=== PATIENT | male | born 1950 | race Caucasian/White ===

== ENCOUNTER 2019-06-15 06:44 | Day surgery (SDC) | payer MEDICARE ==
[2019-06-14 13:05] VITALS: BMI 39.1
[~2019-06-15 06:44] MED LIST: FLU VACC TS2019-20(65YR UP)/PF 180 MCG/0.5 ML SYRINGE IM ONE; Prevnar 13-Val Conj/PF 0.5 ML SYRINGE IM ONE
[2019-06-15 08:00] VITALS: BP 161/91; TEMP 97.6
--- NOTE | 2019-06-15 10:02 | RAD ---
LUMBAR SPINE SERIES FIVE VIEWS INCLUDING FLEXION AND EXTENSION: History: Low back pain. FINDINGS: Bones appear demineralized. Some minimal wedging through the superior endplate of L1 probably related to an old minimal compression injury. Prominent osteophytic changes are seen along the course of the spine. Minimal retrolisthesis of L1 on L2 is seen. There is fairly pronounced disc narrowing at the L4-5 level, also mild disc narrowing at L2-3 and L5-S1. Degenerative facet changes are seen. IMPRESSION: Arthritic changes of the spine. No definite abnormal motion on the flexion or extension views. POS: TPC
--- NOTE | 2019-06-15 10:14 | CT ---
EXAM: CT cervical spine post myelogram PROVIDED CLINICAL HISTORY: Finger numbness and tingling with neck pain TECHNIQUE: Contiguous axial CT images are obtained through the cervical spine from the skull base to the T1 leve l. Sagittal and coronal reformatted images are provided. COMPARISON: None FINDINGS: No fracture or subluxation is seen. There is no prevertebral soft tissue swelling. Scattered degenerative changes are seen in the cervical spine. C2-3 level: There is a mild disc bulge which narrows the ventral subarachnoid space. Neural foramina are patent. C3-4 level: Broad-based disc osteophyte complex is present which narrows the ventral subarachnoid spa ce. This encroaches on the anterior aspect of the spinal cord but does not contact the spinal cord. The neural foramina are patent. C4-5 level: Prominent osteophytes are seen anteriorly with calcification of the anterior longitudinal ligament at this level. A mild broad-based disc osteophyte complex is present. This narrows the ventral subarachnoid space, and there is slight flattening of the central and left anterolateral aspe ct of the spinal cord. Right neural foramen is patent with mild left-sided neural foraminal narrowing. C5-6 level: Osteophytes are present anteriorly with calcification anterior longitudinal ligament. Int ervertebral disc height loss is present. Broad-based disc osteophyte complex is noted. Findings result in generalized narrowing of the central spinal canal with flattening of the anterior aspect of the spinal cord. Mild right and moderate left-sided neural foraminal narrowing are present primarily related to bony encroachment due to posterior osteophytes and mild uncinate process hypertr ophy. C6-7 level: Loss of intervertebral disc height is present. A broad-based disc osteophyte complex is n oted greater centrally. This narrows the ventral subarachnoid space and encroaches on the anterior aspect of the spinal cord. No significant neural foraminal narrowing is present. C7-T1 level: No disc bulge or disc herniation is present. Central spinal canal and neural foramina ar e patent. IMPRESSION: Mild degenerative changes are present cervical spine greatest at the C5-6 level.
--- NOTE | 2019-06-15 10:18 | RAD ---
EXAM: XR Myelogram 2 or More Regions PROVIDED CLINICAL HISTORY: Neurogenic claudication, low back pain, neck pain COMPARISON: None TECHNIQUE: The procedure including the risks and complications were explained to the patient, and informed conse nt was obtained. The patient was placed on the fluoroscopy table in the prone position. An area overlying the L4-5 level at site of laminectomy defect was marked. This area was meticulously prepped and draped in usual sterile fashion. The skin and subcutaneous tissues were infiltrated with buffered 1% lidocaine for local anesthesia. Utilizing fluoroscopic guidance, a 22-gauge spinal needle was advanced into the thecal sac. The inner stylette was removed, and there was a return of clear cerebral spinal fluid. Approximately 9 mL of Isovue-300 contrast was instilled into the thecal sac. T he inner stylette was replaced, and the needle was removed. Hemostasis was achieved with direct pressure, and a dry sterile dressing was placed. Patient was placed in Trendelenburg positioning to allow contrast to flow to the level of the cervica l spine. The patient was then transported to CT for further imaging of the cervical, thoracic, and lumbar spine. The patient tolerated the procedure well and without immediate complication. Patient wa s transported to radiology nurses holding area after CT imaging for further monitoring prior to discharge. IMPRESSION: Technically successful cervical, thoracic, and lumbar myelogram with lumbar puncture at the L4-5 leve l.
--- NOTE | 2019-06-15 10:34 | RAD ---
RADIOGRAPH CERVICAL SPINE 4 VIEWS: DATE: 06-15-2019 HISTORY: 68-year-old male with cervicalgia. TECHNIQUE: 5 total views. Three lateral views in flexion, extension and neutral. Open mouth view. AP view. COMPARISON: None. FINDINGS: Vertebral body heights are maintained. There is a mild, approximately 3 mm anterolisthesis of C3 on C 4 during flexion, which reduces completely on neutral and extension positions. Anterior endplate marginal osteophytes protrude into the prevertebral space at C3-4, C4-5, and C5-6. Disc space narrowing is mild at those levels. There is bilateral facet DJD at upper levels. No prever tebral soft tissue swelling. Minimal degenerative changes at bilateral atlantoaxial joints. IMPRESSION: 1. Mild to moderate cervical spondylosis. 2. Slight instability at C3-4 due to facet osteoarthrosis. JN POS: TPC
--- NOTE | 2019-06-15 10:47 | CT ---
EXAM: CT Thoracic Spine W Con PROVIDED CLINICAL HISTORY: Neck pain and low back pain. This exam was performed post myelogram. COMPARISON: None FINDINGS: Scattered calcified granulomata within the visualized lungs bilaterally. There are prominent osteophy buddy seen anteriorly at multiple levels greatest involving the T7-T11 levels with prominent right anterolateral osteophytes present which results in mild volume loss at the medial aspect right lung a t these levels. Vascular calcifications are seen in the visualized coronary arteries as well as thoracic aorta. There is partial visualization of a dual-lead left subclavian AICD device as well as postsurgical changes related to gastric banding. No fracture or subluxation is seen involving the thoracic spine. Multilevel prominent osteophytes are seen anteriorly. There is bony encroachment on neural foramina at several levels secondary to hypertrophic changes at the costovertebral junctions on the right at the T2-3 and T3-4 levels and on the left at the T4-5, T5-6, and T6-7 levels. Khip-si-cbeairjy degrees of neural foraminal narrowing are present at these le vels with greatest degree of neural foraminal narrowing seen at the T4-5 level on the left with moderate left-sided neural foraminal narrowing. Remaining neural foramina are patent. Central spinal canal appears patent at all levels of the thoracic spine with no significant disc bul ge or disc herniation seen at any level. The conus medullaris terminates at the L1-2 level. Paravertebral soft tissues have a normal appearance. IMPRESSION: Scattered degenerative changes in the thoracic spine with prominent anterior osteophytes at multiple levels as well as degenerative changes and hypertrophic changes at the costovertebral junctions at multiple levels of the thoracic spine extending from the T2-3 to the T6-7 levels as described above r esulting in narrowing of the neural foramina at these levels.
--- NOTE | 2019-06-15 11:21 | CT ---
CT lumbar spine without contrast: HISTORY: Low back pain. Neurogenic claudication. History of prior back surgery. This exam was performed after myelogram. COMPARISON: No prior CT exams of the lumbar spine available FINDINGS: Vascular calcifications are seen in the abdominal aorta and involving the iliac arteries. Many of the limited visualized retroperitoneal structures demonstrate a grossly normal nonenhanced CT appearance. No fracture or subluxation is seen involving the lumbar spine. T12-L1: Mild endplate degenerative changes are present. Minimal disc osteophyte complex is present. T he central spinal canal and neural foramina are patent at this level. L1-2: Mild broad-based disc osteophyte complex with facet hypertrophic changes is present. Slight fla ttening of the anterior aspect of the thecal sac. The neural foramina are patent. L2-3: Vacuum phenomenon is present in the intervertebral disc with slight height loss of the interver tebral disc. A broad-based disc osteophyte complex is present. Mild facet hypertrophic changes are present. Findings result in mild generalized narrowing of the central spinal canal. Mild bilateral ne ural foraminal narrowing is present. Small focus of gas is seen in the left subarticular zone; however, this may be attributable to recent myelogram as opposed to a tiny sequestered disc fragment in this region. L3-4: Broad-based disc osteophyte complex is present. Facet hypertrophic changes and ligamentous thic kening are noted. Avbb-it-yikvukgs central canal narrowing is present. Mild bilateral neural foraminal narrowing is noted greater on the left. L4-5: Laminectomy defect is present at this level. Vacuum phenomenon is seen in the intervertebral di sc. There is a mild disc osteophyte complex without significant narrowing of the central spinal canal. Facet hypertrophic changes are present at this level. Jzcj-hx-oyzusiih left and moderate right -sided neural foraminal narrowing is present. L5-S1: Vacuum phenomenon is seen in the intervertebral disc. Minimal disc osteophyte complex is prese nt with only slight flattening of the anterior aspect of the thecal sac just to the left of midline. Facet hypertrophic changes are noted. Mild bilateral neural foraminal narrowing is present IMPRESSION: Degenerative and postsurgical changes of the lumbar spine. Degenerative changes are greatest at the L 3-4 and L4-5 levels where there is mwbo-fp-cmydyuwa central canal narrowing at the L3-4, and at the L4-5 level there is mild to moderate bilateral neural foraminal narrowing greater on the right.
[2019-06-15] MEDS ORDERED: Iopamidol-M 300 61% 15 ML VIAL ONE (12:09)
== END 2019-06-15 10:35 | disposition home or self-care (01) ==
LOC: RAD 06:44
PROVIDERS: ATTEND Physician Assistant Surgical
PROC: B02B1ZZ Computerized Tomography (CT Scan) of Spinal Cord using Low Osmolar Contrast (ICD-10-PCS; principal; 2019-06-15)
DX: M47.812 Spondylosis without myelopathy or radiculopathy, cervical region (principal); M47.816 Spondylosis without myelopathy or radiculopathy, lumbar region; M48.062 Spinal stenosis, lumbar region with neurogenic claudication; I70.0 Atherosclerosis of aorta; E11.9 Type 2 diabetes mellitus without complications; I10 Essential (primary) hypertension; I25.10 Atherosclerotic heart disease of native coronary artery without angina pectoris; F32.9 Major depressive disorder, single episode, unspecified; E78.5 Hyperlipidemia, unspecified; Z79.82 Long term (current) use of aspirin; Z79.84 Long term (current) use of oral hypoglycemic drugs; Z79.899 Other long term (current) drug therapy; Z95.1 Presence of aortocoronary bypass graft; Z95.810 Presence of automatic (implantable) cardiac defibrillator
CPT/HCPCS: 62305; 72050; 72110; 72126; 72129; 72132; Q9967

== ENCOUNTER 2019-09-12 06:24 | Outpatient (CLI) | payer MEDICARE, OTHER ==
[2019-09-12 14:48] LABS: Hemoglobin 12.8 g/dL (14.0-18.0); Mean Corpuscular HGB CONC 31.9 g/dL (32.0-36.0); Mean Corpuscular Hemoglobin 30.2 pg (27.0-31.0); Mean Corpuscular Volume 94.7 fL (78.0-98.0); Mean Platelet Volume 9.1 fL (7.4-10.4); Platelet Count 192 thou/uL (130-400); RBC Distribution Width 12.8 % (11.5-14.5); Red Blood Cell (RBC) Count 4.22 mill/uL (4.70-6.10); White Blood Cell (WBC) Count 5.7 thou/uL (4.8-10.8)
[2019-09-12 15:02] LABS: PTT 26.9 SEC (22.9-36.1)
[2019-09-12 15:04] LABS: Anion Gap 14 mmol/L (10-20); BUN (Urea Nitrogen) 9 mg/dL (8.4-25.7); Calc. Creatinine Clearance 0 mL/min (70-130); Calcium 9.1 mg/dL (7.8-10.44); Carbon Dioxide 25 mmol/L (23-31); Chloride 105 mmol/L (98-107); Estimated GFR-MDRD Greater than 90; Glucose 164 mg/dL (80-115); Potassium 3.8 mmol/L (3.5-5.1); Sodium 140 mmol/L (136-145)
[2019-09-12 17:17] LABS: SARS-CoV-2 MS2 Positive; SARS-CoV-2 N Gene Negative; SARS-CoV-2 S Gene Negative; SARS-CoV-2 orf1ab Negative
--- NOTE | 2019-09-12 21:38 | EKG ---
Test Reason : Blood Pressure : / mmHG Vent. Rate : 060 BPM Atrial Rate : 066 BPM P-R Int : 000 ms QRS Dur : 108 ms QT Int : 458 ms P-R-T Axes : 000 057 -06 degrees QTc Int : 458 ms Electronic atrial pacemaker Abnormal ECG When compared with ECG of 23-NOV-2010 19:36, Electronic atrial pacemaker has replaced Electronic ventricular pacemaker Confirmed by CYN CHRISTENSEN, DR. Sanchez ([id number]) on 09/12/2019 9:38:21 PM Referred By: BRNEDA Confirmed By:DR. Laura ADDISON MD
== END 2019-09-12 06:25 | disposition home or self-care (01) ==
LOC: LABBT 06:24
PROVIDERS: ATTEND Surgery
DX: Z01.818 Encounter for other preprocedural examination (principal); Z11.59 Encounter for screening for other viral diseases; M51.16 Intervertebral disc disorders with radiculopathy, lumbar region; M48.061 Spinal stenosis, lumbar region without neurogenic claudication
CPT/HCPCS: 80048; 85027; 85610; 85730; 93005; U0003; 87635; 93010

== ENCOUNTER 2019-09-14 08:06 | Day surgery (SDC) | payer MEDICARE ==
[2019-09-12 11:13] VITALS: BMI 39.1
[2019-09-14] MEDS ORDERED: Thrombin 5000 UNITS/5 ML VIAL ONE (10:09)
[2019-09-14] MEDS ORDERED: Lidocaine 2% Jelly 5 ML TUBE ONE (10:16)
[2019-09-14] MEDS ORDERED: Fentanyl 100 MCG/2 ML VIAL ONE ×3 (10:16→13:48)
[2019-09-14] MEDS ORDERED: Succinylcholine Chloride 20 MG/ML 10 ml SYRINGE FS ONE (11:49)
[2019-09-14] MEDS ORDERED: Rocuronium Bromide 10 MG/ML (10ML VIAL) ONE (11:49)
[2019-09-14] MEDS ORDERED: EPHEDRINE 25 MG/5 ML SYRINGE ONE (11:49)
[2019-09-14] MEDS ORDERED: Glycopyrrolate 0.2 MG/ML 5 ML SYRINGE ONE (11:49)
[2019-09-14] MEDS ORDERED: PHENYLEPHRINE-NS 100 MCG/ML 10 ML SYRINGE ONE (11:49)
[2019-09-14] MEDS ORDERED: Lidocaine 1% PF 5 ML VIAL ONE (11:49)
[2019-09-14] MEDS ORDERED: PROPOFOL 200 MG/20 ML VIAL ONE (11:49)
[2019-09-14] MEDS ORDERED: Ondansetron PF 4 MG/2 ML Vial ONE (11:49)
[2019-09-14] MEDS ORDERED: Milk Of Magnesia 30 ML UDCUP PO PRN (13:13)
[2019-09-14] MEDS ORDERED: Morphine 2 MG/ML SYRINGE SLOW IVP PRN (13:13)
[2019-09-14] MEDS ORDERED: Acetaminophen/Codeine 30-300mg Tablet PO PRN (13:13)
[2019-09-14] MEDS ORDERED: Bisacodyl 10 MG SUPP PR PRN (13:13)
[2019-09-14] MEDS ORDERED: Acetaminophen 325 MG TAB PO PRN (13:13)
[2019-09-14] MEDS ORDERED: Fleet Enema 133 ML BOT PR PRN (13:13)
[2019-09-14] MEDS ORDERED: traMADol HCl 50 MG TAB PO PRN (13:13)
[2019-09-14] MEDS ORDERED: Mag-Al 1200 mg/1200 mg/30 ML UDCUP PO PRN (13:13)
[2019-09-14] MEDS ORDERED: Promethazine HCl 25 MG/ML VIAL SLOW IVP PRN (13:17)
[2019-09-14] MEDS ORDERED: Ondansetron HCl/PF 4 MG/2 ML Vial IVP PRN (13:17)
[2019-09-14] MEDS ORDERED: Promethazine HCl 25 MG/ML VIAL IM PRN (13:17)
[2019-09-14] MEDS ORDERED: Isosorbide Mononitrate (ER) 30 MG TAB PO PRN (13:20)
[2019-09-14] MEDS ORDERED: Cyclobenzaprine 10 MG TAB PO PRN (13:20)
[2019-09-14] MEDS: HYDROcodone/Acetaminophen 7.5/325 mg Tablet PO PRN (16:39)
[2019-09-14] MEDS: CEFAZOLIN 2 GM in Premix Bag 1 BAG IVPB SCH (16:40)
[2019-09-14] MEDS: Sodium Chloride 0.9% 1,000 ML IV SCH (16:40)
[2019-09-14] MEDS: metFORMIN 500 MG TAB PO SCH (16:42)
[2019-09-14] MEDS: Sotalol HCl 80 MG TAB PO SCH (20:49)
[2019-09-14] MEDS ORDERED: Atorvastatin Calcium 40 MG TAB PO SCH (21:00)
[2019-09-14] MEDS ORDERED: Losartan 25 MG TAB PO SCH (21:00)
[2019-09-14] MEDS ORDERED: Gabapentin 300 MG CAP PO SCH (21:00)
[2019-09-15] MEDS: CEFAZOLIN 2 GM in Premix Bag 1 BAG IVPB SCH (00:32)
[2019-09-15 04:42] VITALS: TEMP 98.3
[2019-09-15] MEDS: Sodium Chloride 0.9% 1,000 ML IV SCH (05:09)
--- NOTE | 2019-09-15 06:21 | OP ---
DATE OF PROCEDURE: 09/14/2019 ACCOUNTS PAYABLE BOOKKEEPER: Mya Fournier PA-C. PREPROCEDURE DIAGNOSIS: Low back and leg pain with leg weakness. POSTPROCEDURE DIAGNOSIS: Low back and leg pain with leg weakness. PROCEDURE PERFORMED: 1. L2-L4 laminectomy, partial facetectomy, and foraminotomy with left L2-L3 disk space and fragment exploration. 2. Use of operative microscope for microdissection. DESCRIPTION OF PROCEDURE: After informed consent was obtained from the patient, the patient was brought to the OR. Proper patient, pause, and identification were carried out. He was placed under excellent general endotracheal anesthesia and positioned prone on the OR table. All appropriate points were padded. We identified the midline lumbar priyanka that would allow for approach to the L2-L4 segment. This region was sterilely cleansed, prepared, and draped. Proper patient, pause, and identification were carried out. The wound was then opened with a combination of sharp, monopolar, and blunt dissection. The L2-L4 dorsal spines and lamina were exposed. We then performed a left L2-3 disk space exploration, but there was no fragment identified. Copious irrigation occurred throughout as did maximizing hemostasis. The wound was then closed in anatomic layers following sprinkling of vancomycin powder. The patient then emerged from anesthesia. Job ID: [id number]
[2019-09-15 07:43] VITALS: BP 109/64
[2019-09-15] MEDS: metFORMIN 500 MG TAB PO SCH (08:41)
[2019-09-15] MEDS: Sotalol HCl 80 MG TAB PO SCH (08:41)
[2019-09-15] MEDS: HYDROcodone/Acetaminophen 7.5/325 mg Tablet PO PRN (08:43)
--- NOTE | 2019-09-15 08:55 | PRG ---
DATE OF SERVICE: 09/15/2019 I saw Jose Grace in Neurosurgery rounds this morning. He is one day out from L2-L4 laminectomy. The lower extremity symptoms he had before surgery are gone. He is happy with the results of his surgery and wants to go home. Among the electronically record vital signs, I do not see any fevers. Oxygen saturations have been in the mid 90s. He reports some low oxygen saturation after surgery he has had in the past as well. He is on room air and asymptomatic. The lower extremities are moving well. Mr. Grace is ready for discharge. We underwent activity restrictions, wound care, and followup. Job ID: [id number]
[2019-09-15] MEDS ORDERED: Cyanocobalamin (Vitamin B-12) 1,000 MCG TAB PO SCH (09:00)
[2019-09-15] MEDS ORDERED: Multivitamin W/ Minerals 1 TAB PO SCH (09:00)
[2019-09-15] MEDS ORDERED: Prevnar 13-Val Conj/PF 0.5 ML SYRINGE IM ONE (09:00)
--- NOTE | 2019-09-16 05:22 | DIS ---
DATE OF ADMISSION: 09/14/2019 DATE OF DISCHARGE: 09/15/2019 HOSPITAL COURSE: Mr. Grace is a 69-year-old male one day postop from L2-L4 laminectomy. Following his surgery, he was transitioned to the med-surg floor, where his pain was well controlled with p.o. medications. He is tolerating a regular diet and voiding appropriately. He is otherwise doing well and ambulating easily and feels that he is afraid to go home today. PHYSICAL EXAMINATION: Today, he is awake, alert, in no acute distress among electronic record. Vital signs, there are no fevers. Oxygen saturations in the mid 90s. He does report low oxygen saturations. Denies any cigarette smoking. He is asymptomatic on room air. He has free active range of motion of all his extremities. No focal motor weakness. No reflex asymmetry. His incision is dry, clean, and intact. Plan to dismiss the patient to go home today. CONDITION ON DISCHARGE: The patient had no emergencies. Condition was stable for discharge. MEDICATIONS: Home-going medications were reviewed. FOLLOWUP: Followup arrangements made by our patient flow coordinator in the clinic and call to the patient. ACTIVITIES: Restrictions were reviewed in person. Wound care showers are acceptable. The patient should pat incision dry, but not submerge it under the surface of body of water for 2 months. Job ID: [id number] MTDD
== END 2019-09-15 11:20 | disposition home or self-care (01) ==
LOC: SDC 08:06 → SJJU 14:57 → SDC 09-15 11:20
PROVIDERS: ATTEND Surgery
PROC: 01NB0ZZ Release Lumbar Nerve, Open Approach (ICD-10-PCS; principal; 2019-09-14)
DX: M48.062 Spinal stenosis, lumbar region with neurogenic claudication (principal); M48.02 Spinal stenosis, cervical region; M54.16 Radiculopathy, lumbar region; Z79.82 Long term (current) use of aspirin; Z79.84 Long term (current) use of oral hypoglycemic drugs; Z79.899 Other long term (current) drug therapy; Z95.1 Presence of aortocoronary bypass graft; Z95.5 Presence of coronary angioplasty implant and graft; Z95.810 Presence of automatic (implantable) cardiac defibrillator; Z23 Encounter for immunization
CPT/HCPCS: 63047; 63048 ×2; 76000; 82962; 90670; G0009; 36416; 90471; J0690; J2001; J2405; J2704; J3010; J3370

== ENCOUNTER 2020-06-30 06:53 | Day surgery (SDC) | payer MEDICARE ==
[2020-06-26 14:25] VITALS: BMI 39.9
[2020-06-30 08:02] VITALS: BP 156/95; TEMP 97.8
--- NOTE | 2020-06-30 08:47 | RAD ---
4 views of the lumbar spine: 06/30/2020 COMPARISON: None HISTORY: Pain, legs "giving out", prior lumbar spine surgeries FINDINGS: There is disc space narrowing with degenerative endplate change as well as anterior and lat eral osteophyte formation at the T12-L1, L1-2, and L2-3 levels. There is atherosclerotic calcification of the abdominal aorta. The patient is status post bilateral laminectomy at L3, L4, and L5. There is prominent multilevel low er lumbar spine facet hypertrophic change. The neutral lateral exam demonstrates mild retrolisthesis at L2-3 measuring 4 mm and at L3-4 measurin g 5 mm. Mild anterolisthesis at L5-S1 on neutral imaging measures 4 mm. On the flexion imaging and the extension imaging the areas of anterolisthesis or retrolisthesis menti oned above are not significantly changed. No acute osseous abnormality. Partially imaged lap band and transvenous AICD present. IMPRESSION: Lumbar spine degenerative change as described above.
--- NOTE | 2020-06-30 08:50 | RAD ---
Lumbar spine myelogram: 06/30/2020 HISTORY: Back pain, legs "giving out" FINDINGS: Informed consent was obtained prior to the procedure. The patient was placed on the fluoros copic table in the prone position and skin overlying the lumbar spine was prepped and draped in normal sterile fashion. Skin overlying the midline L4 level was anesthetized with 1% buffered lidocaine. With intermittent fluoroscopic guidance, a 22-gauge spinal needle was advanced into the thecal sac an d removal of the stylet yields clear cerebrospinal fluid. Subsequently, approximately 12 cc of iodinated contrast media was injected, outlining nerve roots of the cauda equina and filling the thecal sac. Needle was removed. Patient tolerated the procedure well. The patient was sent to the CT scanner for CT myelogram of the lumbar spine. Exposure data: 1.1 minutes of fluoroscopic time, 94 1.1 mcg/sq m IMPRESSION: Successful lumbar spine myelogram as detailed above.
--- NOTE | 2020-06-30 09:04 | CT ---
Lumbar spine CT myelogram: 06/30/2020 COMPARISON: 06/15/2019 HISTORY: Back pain, legs "giving out", prior back surgery TECHNIQUE: Axial CT imaging obtained at 2.5 mm intervals through the lumbar spine following the admin istration of intrathecal iodinated contrast media. Coronal and sagittal reformatted imaging obtained. FINDINGS: There is a partially imaged lap band present. There is multifocal scattered atherosclerotic calcification of the abdominal aorta and its branches. There is no significant anterolisthesis or retrolisthesis noted within the lumbar spine. The conus medullaris terminates at the L1-2 level. Mild anterior wedging of the L1 vertebral body is present, stable when compared to the prior examinat ion. There is significant degenerative change involving bilateral sacroiliac joints, stable. There is multilevel anterior osteophyte formation within the lower thoracic spine, particularly on th e right, most prominent at the T11-12 level. T12-L1: There is disc space narrowing with degenerative endplate change. No significant central canal or neural foraminal stenosis. Minimal bilateral facet hypertrophy. L1-2: There is minimal disc bulge. No central canal stenosis. Mild bilateral facet hypertrophy and hy pertrophy of the ligamentum flavum. Anterior osteophyte formation noted. No significant neural foraminal stenosis on either side. L2-3: Disc space narrowing with mild disc bulge. Anterior osteophyte formation noted. Vacuum disc for mation is present. Mild bilateral facet hypertrophy, left greater than right. Bilateral laminectomy changes are present with no significant central canal stenosis. Mild bilateral neural foraminal steno sis. L3-4: Bilateral laminectomy present. Mild disc bulge with no significant central canal stenosis. Bila teral facet hypertrophy leads to mild bilateral neural foraminal stenosis. L4-5: Bilateral laminectomy changes are present. No central canal stenosis. There is disc space narro wing and vacuum disc formation. Bilateral facet hypertrophy, right greater than left. Moderate right and mild left neural foraminal stenosis. Anterior osteophyte formation. L5-S1: Mild disc space narrowing, vacuum disc formation, and anterior osteophyte formation. Bilateral facet hypertrophy noted with mild/moderate left neural foraminal stenosis and mild right neural foraminal stenosis. No significant central canal stenosis. No acute fracture or dislocation. No worrisome lytic or blastic bone lesion. IMPRESSION: Multilevel postoperative and degenerative change within the lumbar spine as described abo ve.
[2020-06-30] MEDS ORDERED: Iopamidol-M 200 41% 20 ML VIAL ONE (15:24)
== END 2020-06-30 09:30 | disposition home or self-care (01) ==
LOC: RAD 06:53
PROVIDERS: ATTEND Surgery
PROC: B02B1ZZ Computerized Tomography (CT Scan) of Spinal Cord using Low Osmolar Contrast (ICD-10-PCS; principal; 2020-06-30)
DX: M51.36 Other intervertebral disc degeneration, lumbar region (principal); M43.16 Spondylolisthesis, lumbar region; G47.33 Obstructive sleep apnea (adult) (pediatric); E78.00 Pure hypercholesterolemia, unspecified; E11.9 Type 2 diabetes mellitus without complications; I10 Essential (primary) hypertension; I25.10 Atherosclerotic heart disease of native coronary artery without angina pectoris; F32.9 Major depressive disorder, single episode, unspecified; K21.9 Gastro-esophageal reflux disease without esophagitis; I70.0 Atherosclerosis of aorta; M19.90 Unspecified osteoarthritis, unspecified site; I11.9 Hypertensive heart disease without heart failure; E66.9 Obesity, unspecified; Z68.39 Body mass index [BMI] 39.0-39.9, adult; Z79.82 Long term (current) use of aspirin; Z79.84 Long term (current) use of oral hypoglycemic drugs; Z79.899 Other long term (current) drug therapy; Z95.0 Presence of cardiac pacemaker; Z95.1 Presence of aortocoronary bypass graft; Z95.5 Presence of coronary angioplasty implant and graft
CPT/HCPCS: 62304; 72120; 72132; Q9966

== ENCOUNTER 2021-03-12 08:57 | Outpatient (CLI) | payer MEDICARE ==
[2021-03-12 10:27] LABS: Hemoglobin 12.5 g/dL (13.5-17.5); Mean Corpuscular HGB CONC 32.5 g/dL (32.0-36.0); Mean Corpuscular Hemoglobin 30.5 pg (27.0-33.0); Mean Corpuscular Volume 93.9 fl (81.2-95.1); Mean Platelet Volume 10.4 fl (7.4-10.4); Platelet Count 233 10x3/uL (150-450); RBC Distribution Width 13.5 % (11.5-14.5); White Blood Cell (WBC) Count 10.7 10x3/uL (3.5-10.5)
[2021-03-12 10:49] LABS: INR-International Normal Ratio 0.9; Prothrombin Time 10.5 sec (9.5-12.1)
[2021-03-12 10:50] LABS: Anion Gap 15 mmol/L (10-20); BUN (Urea Nitrogen) 16 mg/dL (8.4-25.7); Calc. Creatinine Clearance 0 mL/min (70-130); Calcium 9.7 mg/dL (7.8-10.44); Carbon Dioxide 23 mmol/L (23-31); Chloride 107 mmol/L (98-107); Glucose 151 mg/dL (83-110); Potassium 4.7 mmol/L (3.5-5.1); Sodium 140 mmol/L (136-145)
[2021-03-12 17:21] LABS: SARS-CoV-2 PCR by NAA Not Detected (NotDetected)
== END 2021-03-12 08:58 | disposition home or self-care (01) ==
LOC: LABBT 08:57
PROVIDERS: ATTEND Internal Medicine Cardiovascular Disease
DX: Z01.812 Encounter for preprocedural laboratory examination (principal); T82.111A Breakdown (mechanical) of cardiac pulse generator (battery), initial encounter; I47.2 Ventricular tachycardia; Z20.822 Contact with and (suspected) exposure to COVID-19
CPT/HCPCS: 80048; 85027; 85610; U0003; U0005

== ENCOUNTER 2021-03-17 07:10 | Day surgery (SDC) | payer MEDICARE ==
[2021-03-17] MEDS ORDERED: CEFAZOLIN 1 GM VIAL ONE ×2 (10:48→11:14)
[2021-03-17] MEDS ORDERED: Gentamicin 80 MG/2 ML VIAL ONE ×2 (10:48→11:14)
[2021-03-17] MEDS ORDERED: Lidocaine 1% (PF) 30 ML VIAL ONE ×2 (10:48→11:14)
[2021-03-17] MEDS ORDERED: PROPOFOL 200 MG/20 ML VIAL ONE (11:36)
[2021-03-17] MEDS ORDERED: Midazolam HCl 2 mg/2 ml Vial ONE (11:40)
[2021-03-17] MEDS ORDERED: Fentanyl 100 MCG/2 ML VIAL ONE (11:40)
== END 2021-03-17 16:35 | disposition home or self-care (01) ==
LOC: CCL 07:10
PROVIDERS: ATTEND Internal Medicine Cardiovascular Disease
PROC: 0JPT0PZ Removal of Cardiac Rhythm Related Device from Trunk Subcutaneous Tissue and Fascia, Open Approach (ICD-10-PCS; principal; 2021-03-17)
PROC: 0JH609Z Insertion of Cardiac Resynchronization Defibrillator Pulse Generator into Chest Subcutaneous Tissue and Fascia, Open Approach (ICD-10-PCS; 2021-03-17)
PROC: 3E0102A Introduction of Anti-Infective Envelope into Subcutaneous Tissue, Open Approach (ICD-10-PCS; 2021-03-17)
DX: T82.111A Breakdown (mechanical) of cardiac pulse generator (battery), initial encounter (principal); I47.2 Ventricular tachycardia; I25.10 Atherosclerotic heart disease of native coronary artery without angina pectoris; I10 Essential (primary) hypertension; E78.5 Hyperlipidemia, unspecified; E11.9 Type 2 diabetes mellitus without complications; G47.33 Obstructive sleep apnea (adult) (pediatric); Z79.82 Long term (current) use of aspirin; Z79.84 Long term (current) use of oral hypoglycemic drugs; Z79.899 Other long term (current) drug therapy; Z95.1 Presence of aortocoronary bypass graft; Z95.5 Presence of coronary angioplasty implant and graft; Y71.1 Therapeutic (nonsurgical) and rehabilitative cardiovascular devices associated with adverse incidents
CPT/HCPCS: 33263; 93005; C1721; J0690; J1580; J2001; J2250; J2704; J3010

== ENCOUNTER 2022-03-30 07:20 | Outpatient (CLI) | payer MEDICARE | END 2022-03-30 07:21 | disposition home or self-care (01) | LOC: MRI 07:20 | PROVIDERS: ATTEND Surgery | DX: M51.36 Other intervertebral disc degeneration, lumbar region (principal); M47.815 Spondylosis without myelopathy or radiculopathy, thoracolumbar region; M51.35 Other intervertebral disc degeneration, thoracolumbar region; M25.78 Osteophyte, vertebrae; M48.05 Spinal stenosis, thoracolumbar region; M47.816 Spondylosis without myelopathy or radiculopathy, lumbar region; M24.28 Disorder of ligament, vertebrae; M48.061 Spinal stenosis, lumbar region without neurogenic claudication; M51.37 Other intervertebral disc degeneration, lumbosacral region; M48.07 Spinal stenosis, lumbosacral region; M47.817 Spondylosis without myelopathy or radiculopathy, lumbosacral region; Z98.890 Other specified postprocedural states | CPT/HCPCS: 72148 ==

== ENCOUNTER 2022-07-22 07:28 | Inpatient (IN) | payer MEDICARE ==
[2022-07-22] MEDS ORDERED: fentaNYL PF 100 MCG/2 ML SYRINGE ONE ×2 (08:27)
[2022-07-22] MEDS ORDERED: CEFAZOLIN 2 GM VIAL ONE (08:59)
[2022-07-22] MEDS ORDERED: Sodium Chloride 0.9% 100 ML ONE (08:59)
[2022-07-22] MEDS ORDERED: Lidocaine 1% PF 5 ML VIAL ONE (09:36)
[2022-07-22] MEDS ORDERED: PROPOFOL 200 MG/20 ML VIAL ONE (09:36)
[2022-07-22] MEDS ORDERED: NEOSTIGMINE 3 MG/3 ML SYR 3 MG/3 ML SYRINGE ONE (09:36)
[2022-07-22] MEDS ORDERED: Vecuronium 10 MG VIAL ONE (09:36)
[2022-07-22] MEDS ORDERED: Glycopyrrolate 0.2 MG/ML 5 ML SYRINGE ONE (09:36)
[2022-07-22] MEDS ORDERED: ePHEDrine 50 MG/ML VIAL ONE (09:36)
[2022-07-22] MEDS ORDERED: Rocuronium Bromide 10 MG/ML (10ML VIAL) ONE (09:36)
[2022-07-22] MEDS ORDERED: Ondansetron PF 4 MG/2 ML Vial ONE (09:36)
[2022-07-22] MEDS ORDERED: Ondansetron PF 4 MG/2 ML Vial IVP PRN ×2 (09:54→14:47)
[2022-07-22] MEDS ORDERED: diphenhydrAMINE 25 MG CAP PO PRN ×2 (09:54→14:47)
[2022-07-22] MEDS ORDERED: Acetaminophen 325 MG TAB PO PRN (09:54)
[2022-07-22] MEDS ORDERED: Thrombin 5000 UNITS/5 ML VIAL ONE ×3 (10:37→12:31)
[2022-07-22] MEDS ORDERED: Naloxone HCl 0.4 mg/ml Vial IV PRN (14:47)
[2022-07-22] MEDS ORDERED: diphenhydrAMINE 50 MG/ML VIAL IM PRN (14:47)
[2022-07-22] MEDS ORDERED: Promethazine HCl 25 MG/ML VIAL IM PRN ×2 (14:47)
[2022-07-22] MEDS ORDERED: Zolpidem Tartrate 5 MG TAB PO PRN (14:47)
[2022-07-22] MEDS ORDERED: diphenhydrAMINE 50 MG/ML VIAL IVP PRN (14:47)
[2022-07-22] MEDS ORDERED: Ondansetron HCl/PF 4 MG/2 ML Vial IVP PRN (14:47)
[2022-07-22] MEDS ORDERED: FENTANYL 500 MCG/10 ML VIAL 2,000 MCG in Sodium Chloride 0.9% 60 ML IV PRN (14:47)
[2022-07-22] MEDS: Mexiletine HCl 150 MG CAP PO SCH ×2 (15:00→20:57)
[2022-07-22] MEDS ORDERED: Communication Order-Pharmacy FS SCH (15:00)
[2022-07-22 16:53] VITALS: BMI 40.1
[2022-07-22] MEDS: CEFAZOLIN 2 GM in Sodium Chloride 0.9% 100 ML IVPB SCH (18:14)
[2022-07-22] MEDS: Sodium Chloride 0.9% 1,000 ML IV SCH (18:18)
[2022-07-22] MEDS: Gabapentin 300 MG CAP PO SCH (20:57)
[2022-07-22] MEDS: Atorvastatin Calcium 40 MG TAB PO SCH (20:59)
[2022-07-22] MEDS: glipiZIDE 10 MG TAB PO SCH (20:59)
[2022-07-22] MEDS: Losartan 25 MG TAB PO SCH (20:59)
[2022-07-23] MEDS: Sodium Chloride 0.9% 1,000 ML IV SCH ×3 (00:59→17:54)
[2022-07-23] MEDS: CEFAZOLIN 2 GM in Sodium Chloride 0.9% 100 ML IVPB SCH ×3 (00:59→17:53)
[2022-07-23 07:21] LABS: #Eosinphils 0.1 thou/uL (0.0-0.7); #Lymphocytes 1.8 thou/uL (1.20-3.40); #Monocytes 0.7 thou/uL (0.11-0.59); #Neutrophils 5.7 thou/uL (1.40-6.50); %Basophils 0.4 % (0.0-1.0); %Eosinophils 0.6 % (0.0-10.0); %Lymphocytes 21.8 % (21.0-51.0); %Monocytes 8.3 % (0.0-10.0); Hemoglobin 11.1 g/dL (14.0-18.0); Mean Corpuscular HGB CONC 32.8 g/dL (32.0-36.0); Mean Corpuscular Hemoglobin 31.7 pg (27.0-31.0); Mean Corpuscular Volume 96.5 fl (78.0-98.0); Mean Platelet Volume 8.4 fL (7.4-10.4); Platelet Count 174 10x3/uL (130-400); RBC Distribution Width 13.3 % (11.5-14.5); Red Blood Cell (RBC) Count 3.51 mill/uL (4.70-6.10); White Blood Cell (WBC) Count 8.2 10x3/uL (4.8-10.8)
[2022-07-23 07:40] LABS: Anion Gap 13 mmol/L (10-20); BUN (Urea Nitrogen) 11 mg/dL (8.4-25.7); Calc. Creatinine Clearance 132 mL/min (70-130); Calcium 8.7 mg/dL (7.8-10.44); Carbon Dioxide 23 mmol/L (23-31); Chloride 106 mmol/L (98-107); Estimated GFR 91; Glucose 136 mg/dL (83-110); Potassium 4.4 mmol/L (3.5-5.1); Sodium 138 mmol/L (136-145)
[2022-07-23] MEDS ORDERED: Fentanyl 100 MCG/2 ML VIAL SLOW IVP PRN (07:55)
[2022-07-23] MEDS ORDERED: oxyCODONE 5 MG TAB PO PRN ×2 (07:55)
[2022-07-23] MEDS ORDERED: Acetaminophen/Codeine 30-300mg Tablet PO PRN (07:55)
[2022-07-23] MEDS ORDERED: Cyclobenzaprine 10 MG TAB PO PRN (07:56)
[2022-07-23] MEDS ORDERED: FENTANYL 50 MCG/ML 1 ML VIAL SLOW IVP PRN (08:06)
[2022-07-23] MEDS: Sertraline 100 MG TAB PO SCH (09:27)
[2022-07-23] MEDS: glipiZIDE 10 MG TAB PO SCH ×2 (09:28→20:26)
[2022-07-23] MEDS: Multivit, Therapeutic 1 TAB PO SCH (09:28)
[2022-07-23] MEDS: Mexiletine HCl 150 MG CAP PO SCH ×3 (11:16→20:48)
[2022-07-23] MEDS: Atorvastatin Calcium 40 MG TAB PO SCH (20:21)
[2022-07-23] MEDS: Losartan 25 MG TAB PO SCH (20:22)
[2022-07-23] MEDS: Gabapentin 300 MG CAP PO SCH (20:22)
[2022-07-24] MEDS: CEFAZOLIN 2 GM in Sodium Chloride 0.9% 100 ML IVPB SCH ×2 (00:36→08:28)
[2022-07-24] MEDS: glipiZIDE 10 MG TAB PO SCH (08:29)
[2022-07-24] MEDS: Multivit, Therapeutic 1 TAB PO SCH (08:29)
[2022-07-24] MEDS: Sertraline 100 MG TAB PO SCH (08:29)
[2022-07-24] MEDS: Mexiletine HCl 150 MG CAP PO SCH (09:29)
[2022-07-24] MEDS: Sodium Chloride 0.9% 1,000 ML IV SCH (09:29)
[2022-07-24 11:45] VITALS: BP 105/62; TEMP 98.1
== END 2022-07-24 13:45 | disposition home or self-care (01) | DRG 460 ==
LOC: SDC 07:28 → SURG B 09:54 → OBSVTOIN 13:19
PROVIDERS: ADMIT Surgery; ATTEND Surgery
PROC: 0SG10AJ Fusion of 2 or more Lumbar Vertebral Joints with Interbody Fusion Device, Posterior Approach, Anterior Column, Open Approach (ICD-10-PCS; principal; 2022-07-22)
PROC: 0SB20ZZ Excision of Lumbar Vertebral Disc, Open Approach (ICD-10-PCS; 2022-07-22)
PROC: 01NB0ZZ Release Lumbar Nerve, Open Approach (ICD-10-PCS; 2022-07-22)
DX: M48.062 Spinal stenosis, lumbar region with neurogenic claudication (principal); Z68.41 Body mass index [BMI] 40.0-44.9, adult; M51.26 Other intervertebral disc displacement, lumbar region; M71.38 Other bursal cyst, other site; M47.816 Spondylosis without myelopathy or radiculopathy, lumbar region; I10 Essential (primary) hypertension; E78.5 Hyperlipidemia, unspecified; I25.10 Atherosclerotic heart disease of native coronary artery without angina pectoris; I48.91 Unspecified atrial fibrillation; G47.33 Obstructive sleep apnea (adult) (pediatric); E66.9 Obesity, unspecified; F32.A Depression, unspecified; Z95.5 Presence of coronary angioplasty implant and graft; Z95.1 Presence of aortocoronary bypass graft; Z95.0 Presence of cardiac pacemaker; Z98.890 Other specified postprocedural states; Z90.09 Acquired absence of other part of head and neck; Z79.84 Long term (current) use of oral hypoglycemic drugs; Z79.82 Long term (current) use of aspirin; Z79.899 Other long term (current) drug therapy
CPT/HCPCS: 36415; 80048; 85025; 93970; 96365; 96376; C1713; C1768; C1776; C1889; G0378; J2405; J2704; J3010; J3490; J7050

== ENCOUNTER 2023-04-12 07:31 | Outpatient (CLI) | payer MEDICARE | END 2023-04-12 07:32 | disposition home or self-care (01) | LOC: MRI 07:31 → EDSTATUS 08:00 | PROVIDERS: ATTEND Surgery | DX: Z01.818 Encounter for other preprocedural examination (principal); M48.02 Spinal stenosis, cervical region; Z95.810 Presence of automatic (implantable) cardiac defibrillator; M47.12 Other spondylosis with myelopathy, cervical region; M50.022 Cervical disc disorder at C5-C6 level with myelopathy; M50.023 Cervical disc disorder at C6-C7 level with myelopathy; Z98.890 Other specified postprocedural states; M43.16 Spondylolisthesis, lumbar region; M47.26 Other spondylosis with radiculopathy, lumbar region; R93.7 Abnormal findings on diagnostic imaging of other parts of musculoskeletal system | CPT/HCPCS: 71046; 72050; 72120; 72141; 72148 ==